=== PATIENT | male | born 1940 | race Caucasian/White ===

== ENCOUNTER 2020-03-12 07:00 | Outpatient (CLI) | payer OTHER, MEDICARE ==
[2020-03-12 08:00] LABS: ALBUMIN 4.3 g/dL (3.2-5.5); ALBUMIN/GLOBULIN RATIO 1.1 (1.0-2.2); CALCIUM 9.7 mg/dL (8.5-10.3); CREATININE 1.3 mg/dL (0.6-1.2); TOTAL PROTEIN 8.2 g/dL (6.7-8.2)
[2020-03-12 08:03] LABS: BASOPHILS # (AUTO) 0.1 10^3/uL (0.0-0.1); EOSINOPHILS # (AUTO) 0.2 10^3/uL (0.0-0.7); EOSINOPHILS % (AUTO) 1.9 %; HGB - HEMOGLOBIN 15.3 g/dL (14.0-18.0); LYMPHOCYTES # (AUTO) 1.7 10^3/uL (1.5-3.5); LYMPHOCYTES % (AUTO) 16.5 %; MEAN CORPUSCULAR HEMOGLOBIN 29.3 pg (27.0-31.0); MEAN CORPUSCULAR HGB CONC 32.7 g/dL (32.0-36.0); MEAN CORPUSCULAR VOLUME 89.5 fL (80.0-94.0); MEAN PLATELET VOLUME 11.5 fL (7.4-11.4); MONOCYTES % (AUTO) 9.6 %; NEUTROPHILS # (AUTO) 7.2 10^3/uL (1.5-6.6); NEUTROPHILS % (AUTO) 69.7 %; PLT - PLATELET COUNT 250 10^3/uL (130-450); RED BLOOD COUNT 5.23 10^6/uL (4.70-6.10); RED CELL DISTRIBUTION WIDTH 13.9 % (12.0-15.0); WHITE BLOOD COUNT 10.4 x10^3/uL (4.8-10.8)
[2020-03-12 09:46] LABS: HEMOGLOBIN A1c% 5.9 % (4.27-6.07)
[2020-03-12 14:18] LABS: BILIRUBIN,URINE NEGATIVE (NEGATIVE); GLUCOSE, URINE (UA) NEGATIVE (NEGATIVE); KETONES,URINE (UA) NEGATIVE (NEGATIVE); LEUKOCYTE ESTERASE, URINE NEGATIVE (NEGATIVE); NITRITE,URINE NEGATIVE (NEGATIVE); OCCULT BLOOD,URINE NEGATIVE (NEGATIVE); PROTEIN,URINE NEGATIVE (NEGATIVE); UROBILINOGEN,URINE 1 (NORMAL) E.U./dL (NORMAL)
[2020-03-12 14:32] LABS: BACTERIA,URINE None Seen /HPF (None Seen); CLARITY,URINE CLEAR (CLEAR); RBC,URINE None Seen /HPF (0-5); SQUAMOUS EPITHELIAL CELL,UR NONE SEEN (<= Few)
== END 2020-03-12 23:59 | disposition home or self-care (01) ==
LOC: LAB.R 07:00
PROVIDERS: ATTEND Registered Nurse
DX: R79.9 Abnormal finding of blood chemistry, unspecified (principal); R68.89 Other general symptoms and signs; R73.9 Hyperglycemia, unspecified; R94.6 Abnormal results of thyroid function studies
CPT/HCPCS: 80053; 81001; 83036; 84443; 85025

== ENCOUNTER 2020-05-14 21:13 | Emergency (ER) | payer OTHER, MEDICARE ==
--- NOTE | 2020-05-14 21:52 | ED Physician Documentation ---
PD HPI LOWER EXT INJURY - Stated complaint Stated Complaint: LT LEG PX - Chief complaint Chief Complaint: Ext Problem - History obtained from History obtained from: Patient - History of Present Illness PD HPI LOW EXT INJURY LOCATION: Left, Lower leg, Ankle Type of injury: Other (he states has had swelling of left lower leg and ankle for long time, since injury last year. Wear compression stocking most days. Gets redness around the ankle at times. States the lower leg has been hurting more the past week or so. Exam in [facility] raised concern of DVT, so sent to ER for evaluation.). No: Fall, Twist Timing - onset: How many months ago Timing - duration: Months Worsened by: Palpating (lower leg hurting more than usual the past week or so.) Associated symptoms: Swelling. No: Weakness, Numbness Contributing factors: No: Anticoagulated Review of Systems Constitutional: denies: Fever, Chills Nose: denies: Rhinorrhea / runny nose, Congestion Throat: denies: Sore throat Cardiac: denies: Chest pain / pressure Respiratory: denies: Dyspnea, Cough PD PAST MEDICAL HISTORY - Past Medical History Past Medical History: Yes Cardiovascular: Hypertension - Past Surgical History Past Surgical History: No - Present Medications Home Medications: Ambulatory Orders Medication Instructions Recorded Confirmed Aspirin [Aspirin EC] 81 mg PO DAILY 05/14/20 05/14/20 Lisinopril [Prinivil] 10 mg PO DAILY 05/14/20 05/14/20 Methadone HCl 10 mg PO BID 05/14/20 05/14/20 Naproxen Sodium 275 mg PO BID #14 tab 05/14/20 Oxycodone HCl [Oxycontin] 15 mg PO Q4HR PRN 05/14/20 05/14/20 Tamsulosin HCl [Flomax] 1 cap PO QPM 05/14/20 05/14/20 - Allergies Allergies/Adverse Reactions: Allergies Allergy/AdvReac Type Severity Reaction Status Date / Time No Known Drug Allergies Allergy Verified 05/14/20 21:15 - Social History Does the pt smoke?: No Smoking Status: Never smoker Does the pt drink ETOH?: No Does the pt have substance abuse?: No - Immunizations Immunizations are current?: Yes - POLST Patient has POLST: No PD ED PE NORMAL - Vitals Vital signs reviewed: Yes - General General: Alert and oriented X 3, No acute distress, Well developed/nourished - Cardiac Cardiac: RRR, No murmur - Respiratory Respiratory: Clear bilaterally - Derm Derm: Normal color, Warm and dry - Extremities Extremities: Other (both legs with some edema at ankles/lower legs. Left more swelling. There is some mild redness around lower part of lower leg, but not warm. Mild calf tenderness. ) - Neuro Neuro: Alert and oriented X 3, No motor deficit, No sensory deficit, Normal speech Results - Vitals Vitals: Vital Signs - 24 hr 05/14/20 05/14/20 21:15 22:40 Temperature 36.9 C 36.5 C Heart Rate 76 67 Respiratory 16 16 Rate Blood Pressure 185/94 H 183/75 H O2 Saturation 98 98 Oxygen O2 Source Room air - Rads (name of study) duplex left leg Radiology: Prelim report reviewed (Normal flow within all veins. Distal femoral vein is less compressible (still with normal flow visualized). suggest repeat exam if persistent symptoms. ), See rad report PD MEDICAL DECISION MAKING - ED course Complexity details: reviewed results (Less compressible distal femoral vein, but there is still flow visualized "reassuring against DVT" per report.), considered differential, d/w patient Departure - Departure Disposition: 01 Home, Self Care Clinical Impression: Left leg swelling Clinical Impression: (Ruled Out): Deep vein thrombosis Condition: Stable Record reviewed to determine appropriate education?: Yes Instructions: ED Leg Swelling Unilateral Follow-Up: PHIL ROBERTS ARNP [Physician No Access] - Prescriptions: Naproxen Sodium 275 mg PO BID #14 tab Comments: And is negative for blood clots. Elevate the leg often to reduce swelling. Continue with your compressive sock. For the discomfort, consider some mild anti-inflammatories such as naproxen twice daily for a week. To that add Tylenol 4 times a day 500 mg as needed for pain. Follow-up with the [facility] provider. Repeat ultrasound inf worsening symptoms in several days to a week. Discharge Date/Time: 05/14/20 22:46
[2020-05-14] MEDS ORDERED: NAPROXEN 250 MG TABLET PO STA (22:17)
[2020-05-14 22:47] VITALS: BP 183/75
--- NOTE | 2020-05-15 07:35 | Ultrasound Report ---
PROCEDURE: Duplex Ext Veins Left INDICATIONS: L leg swelling TECHNIQUE: Real-time imaging, as well as color and pulse Doppler interrogation, were performed of the lower extr emity deep veins from the inguinal ligament to the popliteal fossa. COMPARISON: None. FINDINGS: The distal femoral vein is noncompressible. Normal Doppler flow noted in the distal femora l vein. The remainder of deep veins are normally compressible, and free of intraluminal thrombus. Co lennie and pulse Doppler demonstrate normal phasic intraluminal flow. There is normal augmentation resp onse to distal compression maneuver. IMPRESSION: 1. No definite evidence of deep vein thrombosis involving the left lower extremity, however the dista l femoral vein is noncompressible which could be due to technique versus deep vein thrombosis. Consid er repeat imaging if there is continued clinical concern for deep vein thrombosis. 2. Otherwise, normal Doppler ultrasound of the deep veins of the left lower extremity. Reviewed by: Taylor Nance MD, PhD on 05/15/2020 7:34 AM PST Approved by: Taylor Nance MD, PhD on 05/15/2020 7:34 AM PST Station ID: [id number]
== END 2020-05-14 22:46 | disposition home or self-care (01) ==
LOC: ED 21:13
DX: R22.42 Localized swelling, mass and lump, left lower limb (principal); M79.605 Pain in left leg; I10 Essential (primary) hypertension; Z79.82 Long term (current) use of aspirin
CPT/HCPCS: 93971; 99283; 99284; A9270

== ENCOUNTER 2020-05-29 07:30 | Outpatient (CLI) | payer OTHER, MEDICARE ==
[2020-05-29 08:07] LABS: ALBUMIN 3.9 g/dL (3.2-5.5); ALBUMIN/GLOBULIN RATIO 1.1 (1.0-2.2); BILIRUBIN,TOTAL 0.6 mg/dL (0.2-1.0); CALCIUM 9.2 mg/dL (8.5-10.3); CREATININE 1.5 mg/dL (0.6-1.2); POTASSIUM 4.6 mmol/L (3.5-5.0); TOTAL PROTEIN 7.4 g/dL (6.7-8.2)
== END 2020-05-29 23:59 | disposition home or self-care (01) ==
LOC: LAB.R 07:30
PROVIDERS: ATTEND Registered Nurse
DX: R79.89 Other specified abnormal findings of blood chemistry (principal)
CPT/HCPCS: 36415; 80053